=== PATIENT | female | born 1975 | race Hispanic/Latino ===

== ENCOUNTER 2024-09-04 14:13 | Inpatient (IN) | payer SELFPAY ==
[~2024-09-04] VITALS: Ht 149.9 cm; Wt 87.6 kg
--- NOTE | 2024-09-04 15:05 | EKG ---
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
[2024-09-04 15:18] LABS: AMPHET/METH SCREEN,URINE NEGATIVE (NEGATIVE); BARBITURATE SCREEN, URINE NEGATIVE (NEGATIVE); BENZODIAZEPINES SCREEN,URINE NEGATIVE (NEGATIVE); CANNABINOID SCREEN,URINE NEGATIVE (NEGATIVE); COCAINE SCREEN,URINE POSITIVE (NEGATIVE); OPIATE SCREEN,URINE NEGATIVE (NEGATIVE); PHENCYCLIDINE SCREEN,URINE NEGATIVE (NEGATIVE)
--- NOTE | 2024-09-04 15:18 | HMCIMG ---
INDICATION: CP TECHNIQUE: CHEST 1VW COMPARISON: None FINDINGS/IMPRESSION: No acute consolidation or pleural effusion. Cardiac silhouette is within normal limits. Mild degenerative changes of the spine. The visualized upper abdomen appears unremarkable.
[2024-09-04 15:19] LABS: BASOPHILS # (AUTO) 0.04 K/uL (0.00-0.20); BASOPHILS % (AUTO) 0.6 % (0.0-5.0); EOSINOPHILS # (AUTO) 0.04 K/uL (0.00-0.70); EOSINOPHILS % (AUTO) 0.6 % (0.0-8.0); HEMATOCRIT 38.6 % (36-48); IMMATURE GRANULOCYTE ABSOLUTE 0.04 K/uL (0-1); LYMPHOCYTES # (AUTO) 1.1 K/uL (1.0-4.8); LYMPHOCYTES % (AUTO) 16.3 % (21.0-51.0); MEAN CORPUSCULAR HEMOGLOBIN 30.5 pg (27.0-33.0); MEAN CORPUSCULAR HGB CONC 34.2 g/dL (32.0-36.0); MEAN CORPUSCULAR VOLUME 89.1 fL (79-99); MONOCYTES # (AUTO) 0.8 K/uL (0.1-1.0); MONOCYTES % (AUTO) 11.8 % (3.0-13.0); NEUTROPHILS # (AUTO) 4.6 K/uL (1.8-7.7); NEUTROPHILS % (AUTO) 70.1 % (40.0-77.0); PLATELET COUNT (AUTO) 243 K/uL (130-400); RED BLOOD CELL COUNT(AUTO) 4.33 MIL/uL (4.00-5.50); RED CELL DISTRIBUTION WIDTH 12.4 % (11.0-15.5); WHITE BLOOD COUNT (AUTO) 6.5 K/uL (4.8-10.8)
[2024-09-04] MEDS: PANTOPrazole 40 MG/VIAL IVP ONE (15:24)
[2024-09-04 15:25] LABS: APPEARANCE,URINE CLEAR (CLEAR); BILIRUBIN,URINE NEGATIVE (NEGATIVE); COLOR,URINE LIGHT-YELLOW (YELLOW); GLUCOSE, URINE (UA) >=1000 mg/dL (NEGATIVE); KETONES,URINE 10 mg/dL (NEGATIVE); LEUKOCYTE ESTERASE ,URINE NEGATIVE Leu/uL (NEGATIVE); NITRATE,URINE NEGATIVE (NEGATIVE); OCCULT BLOOD,URINE NEGATIVE (NEGATIVE); PH,URINE 6.5 (5.0-8.0); PROTEIN,URINE NEGATIVE (NEGATIVE); UROBILINOGEN,URINE 0.2 mg/dL (0.2-1.0)
[2024-09-04 15:26] LABS: ADD UA MICROSCOPIC YES
[2024-09-04 15:29] LABS: CREATININE 0.7 mg/dL (0.5-1.0); POTASSIUM 3.5 mmol/L (3.5-5.1)
[2024-09-04 15:31] LABS: INR <= 0.93 (0.85-1.15); PROTHROMBIN TIME 9.7 SEC (9.6-11.6)
[2024-09-04 15:33] LABS: ALBUMIN 2.7 g/dL (3.5-5.0); BILIRUBIN,TOTAL 0.5 mg/dL (0.2-1.0); MAGNESIUM 1.6 mg/dL (1.80-2.40); PARTIAL THROMBOPLASTIN TIME 24.6 SEC (26.3-35.5); TOTAL PROTEIN, SERUM 6.1 g/dL (6.0-8.3)
[2024-09-04 15:35] LABS: RBC,URINE 0-1 /HPF (0-1); SQUAMOUS EPITHELIAL CELL,UR FEW /HPF (0-2)
[2024-09-04 15:44] LABS: B-TYPE NATRIURETIC PEPTIDE 32 pg/mL (0-100)
[2024-09-04] MEDS: MAG/ALUM/SIMETH 30 ML UDCUP PO ONE (16:11)
[2024-09-04] MEDS: LIDOCAINE HCL 2% VISCOUS 15 ML UDCUP PO ONE (16:11)
--- NOTE | 2024-09-04 16:36 | ERN ---
General Chief Complaint: Chest Wall Pain Stated Complaint: CHEST PAIN Time Seen by MD: 14:23 Source: patient History of Present Illness Initial Comments Patient is a 49-year-old female coming in to be evaluated for chest pain. Per patient this pain has been ongoing for one week. Patient also states that pain is more pressure-like in his localized to the center of her chest. No other current complaint. Allergies: Coded Allergies: No Known Drug Allergies (Unverified Allergy, Unknown, 09/04/24) Past Medical History Past Medical History: Diabetes-Type II, Hypertension Past Surgical History: Other ROS Dictation CONSTITUTIONAL: No chills, no fever, no weakness, no diaphoresis, no malaise. HEAD/FACE: No signs of trauma. EENT: No eye pain, no blurred vision, no tearing, no double vision, no ear pain, no ear discharge, no nose pain, no nasal congestion, no throat pain, no throat swelling, no mouth pain. RESPIRATORY: No cough, no orthopnea, no SOB, no stridor, no wheezing. CARDIOVASCULAR: chest pain, no edema, no palpitations, no syncope. GASTROINTESTINAL/ABDOMINAL: No abdominal pain, no constipation, no diarrhea, no nausea, no vomiting. GENITOURINARY: No abnormal discharge, no dysuria, no frequent urination, no hematuria. No complaints of pain in the genitals. MUSCULOSKELETAL: No back pain, no gout, no joint pain, no joint swelling, no muscle pain, no muscle stiffness, no neck pain. INTEGUMENTARY: No change in color, no change in hair/nails, no dryness, no lesion, no lumps, no rash. NEUROLOGICAL/PSYCH: No anxiety, not depressed, no emotional problem, no headache, no numbness, no pre-existing deficit, no history of seizures, no tremors, no weakness. HEMATOLOGIC/LYMPHATIC: Not anemic, no history of blood clots, no apparent bleeding, no bruising, glands not swollen. All Systems Negative, Except as Noted. Physical Exam Physical Exam Dictation VITAL SIGNS: Reviewed. GENERAL APPEARANCE: Alert, oriented x3, no acute distress, obese. HEAD AND FACE: Non-traumatic. EYES: PERRL, pink conjunctivas, eyelid no trauma, anterior chamber clear. EARS: Pinnas intact and no signs of trauma or erythema. Ear canals clear and no discharge. TMs no erythema. NOSE: No discharge, no bleeding. OROPHARYNX: Mouth normal, teeth no caries, tongue pink. Pharynx clear, no erythema. Tonsils no exudates, no abscesses noted. Mucous membrane moist. NECK: Supple, non-tender, no thyromegaly, no masses, no JVD, no bruits. BREAST: Deferred. CHEST: No tenderness, no crepitus, no paradoxical movement, no retractions. LUNGS: Clear, well-ventilated, symmetric, no rales, no wheezing, no rhonchi, no stridor, good breath sounds bilaterally. HEART: Regular rate, regular rhythm, no murmur, no gallops. VASCULAR: No peripheral edema. ABDOMEN: Soft, positive bowel sounds, nondistended, no guarding, nontender, no rebound, no masses no hepatomegaly, no splenomegaly, no Lama's sign, no he rnias. RECTAL: Deferred. GENITAL: Deferred. NEUROLOGICAL: Normal speech, gross motor function intact, gross sensory functio n intact. MUSCULOSKELETAL: Neck nontender, full range of motion, back nontender, full range of motion. EXTREMITIES: Nontender, full range of motion. SKIN: Color pink, dry, no turgor, no rash, no lacerations, no abrasions, no contusions. LYMPHATICS: Deferred. Results Laboratory and Microbiology Lab and Micro Result Laboratory Tests Test 09/04/24 14:45 09/04/24 15:12 09/04/24 16:06 Urine Color LIGHT-YELLOW (YELLOW) Urine Appearance CLEAR (CLEAR) Urine pH 6.5 (5.0-8.0) Urine Specific [place] 1.030 (1.001-1.031) Urine Protein NEGATIVE mg/dL (NEGATIVE) Urine Glucose (UA) >=1000 mg/dL (NEGATIVE) H Urine Ketones 10 mg/dL (NEGATIVE) H Urine Occult Blood NEGATIVE (NEGATIVE) Urine Nitrate NEGATIVE (NEGATIVE) Urine Bilirubin NEGATIVE mg/dL (NEGATIVE) Urine Urobilinogen 0.2 mg/dL (0.2-1.0) Urine Leukocyte Esterase NEGATIVE Alex/uL Urine RBC 0-1 /HPF (0-1) Urine WBC 2-5 /HPF (0-1) H Urine Squamous Epithelial Cells FEW /HPF (0-2) Urine Bacteria None /HPF (None Seen) Urine Opiates Screen NEGATIVE (NEGATIVE) Urine Barbiturates Screen NEGATIVE (NEGATIVE) Urine Phencyclidine Screen NEGATIVE (NEGATIVE) Urine Amphetamines Screen NEGATIVE (NEGATIVE) Urine Benzodiazepines Screen NEGATIVE (NEGATIVE) Urine Cocaine Screen POSITIVE (NEGATIVE) H Urine Marijuana (THC) Screen NEGATIVE (NEGATIVE) White Blood Count 6.5 K/uL (4.8-10.8) Red Blood Count 4.33 MIL/uL (4.00-5.50) Hemoglobin 13.2 g/dL (12.0-16.0) Hematocrit 38.6 % (36-48) Mean Corpuscular Volume 89.1 fL (79-99) Mean Corpuscular Hemoglobin 30.5 pg (27.0-33.0) Mean Corpuscular Hemoglobin Concent 34.2 g/dL (32.0-36.0) Red Cell Distribution Width 12.4 % (11.0-15.5) Platelet Count 243 K/uL (130-400) Mean Platelet Volume 9.6 fL (7.5-10.5) Immature Granulocyte % (Auto) 0.6 % (0-1) Neutrophils (%) (Auto) 70.1 % (40.0-77.0) Lymphocytes (%) (Auto) 16.3 % (21.0-51.0) L Monocytes (%) (Auto) 11.8 % (3.0-13.0) Eosinophils (%) (Auto) 0.6 % (0.0-8.0) Basophils (%) (Auto) 0.6 % (0.0-5.0) Neutrophils # (Auto) 4.6 K/uL (1.8-7.7) Lymphocytes # (Auto) 1.1 K/uL (1.0-4.8) Monocytes # (Auto) 0.8 K/uL (0.1-1.0) Eosinophils # (Auto) 0.04 K/uL (0.00-0.70) Basophils # (Auto) 0.04 K/uL (0.00-0.20) Absolute Immature Granulocyte (auto 0.04 K/uL (0-1) Nucleated Red Blood Cells 0.0 % (0.0-0.19) Prothrombin Time 9.7 SEC (9.6-11.6) Prothromb Time International Ratio <= 0.93 (0.85-1.15) Activated Partial Thromboplast Time 24.6 SEC (26.3-35.5) L Sodium Level 137 mmol/L (136-145) Potassium Level 3.5 mmol/L (3.5-5.1) Chloride Level 102 mmol/L (101-111) Carbon Dioxide Level 29 mmol/L (21-32) Blood Urea Nitrogen 6 mg/dL (7-18) L Creatinine 0.7 mg/dL (0.5-1.0) Glomerular Filtration Rate Calc 107 mL/min (>90) Random Glucose 363 mg/dL (70-105) H Total Calcium 8.5 mg/dL (8.5-10.1) Magnesium Level 1.60 mg/dL (1.80-2.40) L Total Bilirubin 0.5 mg/dL (0.2-1.0) Aspartate Amino Transf (AST/SGOT) 14 U/L (10-37) Alanine Aminotransferase (ALT/SGPT) 21 U/L (12-78) Alkaline Phosphatase 106 U/L (50-136) Total Creatine Kinase 30 U/L (21-232) Troponin I High Sensitivity < 4 ng/L (4-50) L < 4 ng/L (4-50) L B-Type Natriuretic Peptide 32 pg/mL (0-100) Total Protein 6.1 g/dL (6.0-8.3) Albumin 2.7 g/dL (3.5-5.0) L Lipase 50 U/L (16-77) Labs Reviewed?: Yes EKG/XRAY/US/CT/MRI EKG Comment 09/04/2024 time 3:04 p.m. Ventricular rate [address] wave elevation or depression AL 140 X-RAY Comment [place] [id number] [place] [address] IMAGING REPORT Signed PATIENT: SERA LOPEZ MR#: [id number] : 1975 SEX: F AGE: 49 LOCATION: [facility] ORDER 37 STATUS: REG ER REPORT#: [id number] SERVICE 36 REASON: CP ORDERING PHYSICIAN: VICTORIANO HANKS MD PROCEDURE: CXR1VW - CHEST 1VW INDICATION: CP TECHNIQUE: CHEST 1VW COMPARISON: None FINDINGS/IMPRESSION: No acute consolidation or pleural effusion. Cardiac silhouette is within normal limits. Mild degenerative changes of the spine. The visualized upper abdomen appears unremarkable. DICTATED BY: JAVY ALEXIS MD DATE: 09/04/241512 ELECTRONICALLY SIGNED BY: JAVY ALEXIS MD DATE: 09/04/241517 MDM MDM: Differential diagnosis: Chest pain, cocaine abuse, Rationale: Tests considered and ordered secondary to shared decision making include: labs, ECG and radiology Previous outside records reviewed: Old ER visits. Risk of complication and/or morbidity or mortality of patient management: None Medications-Per medication reconciliation Need for hospitalization: Patient does meet criteria for hospitalization. Need for emergency major/minor surgery: No There are no social concerns with this patient. Prescription drug management Prescriptions will include symptomatic care Patient's prior external medical records from other ER visits were reviewed by me as indicated. Prior testing and results from previous visits were reviewed. Prior tests were taken into account with medical decision making and resource utilization, independent historian/historians were used to obtain complete medical history. I independently interpreted the test that were performed, results were reviewed by me and considered findings on radiology if ordered. Medical management and examination interpretation discussions were had by me with other qualified healthcare professionals as indicated for the patient's care. Patient is a 49-year-old female coming in to be evaluated for chest pain. Patient states that the chest pain has been ongoing for two weeks. She also states that the chest pain became increasingly worse in the last couple of days. Laboratory workup positive for cocaine cardiac enzymes negative x2. Patient will be admitted under the care of hospitalist group for ongoing management of cocaine abuse and chest pain. ED Course Orders Procedure Category Date Status Time Cbc With Differential LAB 09/04/24 Complete 14:37 Prothrombin Time With LAB 09/04/24 Complete INR 14:37 B-Type Natriuretic LAB 09/04/24 Complete Peptide 14:37 Chest 1vw RAD 09/04/24 Resulted 14:37 12 Lead Ekg Tracing- EKG 09/04/24 Complete Technical 14:37 Magnesium LAB 09/04/24 Complete 14:37 Creatine Kinase, Total LAB 09/04/24 Complete 14:37 Troponin I High LAB 09/04/24 Complete Sensitivity 14:37 Urinalysis Profile LAB 09/04/24 Complete 14:37 Partial LAB 09/04/24 Complete Thromboplastin Time 14:37 Comprehensive LAB 09/04/24 Complete Metabolic Panel 14:37 Lipase LAB 09/04/24 Complete 14:37 Pantoprazole 40mg Inj PHA 09/04/24 Complete (Protonix 40mg Inj 15:00 Drug Screen Urine LAB 09/04/24 Complete 14:38 Lidocaine Hcl 2% PHA 09/04/24 Complete Viscous (Lidocaine Hcl 16:00 Mag/Alum/Simeth 30ml PHA 09/04/24 Complete (Maalox Plus 30ml) 16:00 Troponin I High LAB 09/04/24 Complete Sensitivity 15:52 0.9%Nacl 1000ml (Ns PHA 09/04/24 Complete 1000ml) 17:00 Nitroglycerin 0.4mg PHA 09/04/24 In Process Sl Tab (Nitrostat) 17:30 Magnesium Oxide PHA 09/04/24 Complete (Mag-Ox) 17:30 Nitroglycerin 0.4mg PHA 09/04/24 Complete Sl Tab (Nitrostat) 17:05 Diazepam 5 Mg/Ml 2 Ml PHA 09/04/24 Complete Syg (Valium 5 Mg/M 18:00 Current Medications Medications (Trade) Dose Ordered Sig/Sami Route PRN Reason Start Time Stop Time Status Last Admin Dose Admin Al Hydroxide/Mg Hydroxide (MAALox PLUS 30ML) 30 ml ONCE ONCE PO 09/04/24 16:00 09/04/24 16:01 DC 09/04/24 16:11 Diazepam (VALium 5 MG/ML 2 ML SYG) 2.5 mg ONCE ONCE IVP 09/04/24 18:00 09/04/24 18:01 DC 09/04/24 18:10 Lidocaine HCl (Lidocaine HCl 2% Viscous) 10 ml ONCE ONCE PO 09/04/24 16:00 09/04/24 16:01 DC 09/04/24 16:11 Magnesium Oxide (Mag-Ox) 400 mg ONCE ONCE PO 09/04/24 17:30 09/04/24 17:31 DC 09/04/24 18:10 Nitroglycerin (Nitrostat) 0.4 mg AD PRN SL CHEST PAIN 09/04/24 17:30 10/04/24 17:29 09/04/24 17:28 Nitroglycerin (Nitrostat) 0.4 mg STK-MED ONCE SL 09/04/24 17:05 09/04/24 17:11 DC Pantoprazole Sodium (PROTonix 40MG INJ) 40 mg ONCE ONCE IVP 09/04/24 15:00 09/04/24 15:01 DC 09/04/24 15:24 Sodium Chloride 1,000 ml @ 0 mls/hr ONCE ONCE IV 09/04/24 17:00 09/04/24 17:01 DC 09/04/24 16:57 Vital Signs Date Time Temp Pulse Resp B/P (MAP) Pulse Ox O2 Delivery O2 Flow Rate FiO2 09/04/24 17:20 100.0 113 24 122/77 96 Room Air* 0 09/04/24 17:05 99.9 110 24 133/82 97 Room Air* 0 09/04/24 16:00 112 22 130/86 97 Room Air* 0 09/04/24 15:14 96 20 125/82 97 Room Air* 0 09/04/24 14:14 98.4 99 20 161/89 95 Room Air 0 DX & DISP Disposition: Inpatient Decision to Admit Time: 18:25 Departure Impression: Primary Impression: Cocaine abuse Additional Impression: Chest pain Condition: Stable Referrals: SELF,REFERRAL (PCP) VICTORIANO HANKS MD Sep 04, 2024 16:36
[2024-09-04] MEDS: 0.9%NACL 1000ML 1,000 ML IV ONE (16:57)
[2024-09-04] MEDS: NITROGLYCERIN 0.4 MG SL TAB SL PRN (17:08)
[2024-09-04] MEDS: NITROGLYCERIN 0.4 MG SL TAB SL ONE (17:13)
[2024-09-04] MEDS: diazePAM 5 MG/ML 2 ML SYG IVP ONE (18:10)
[2024-09-04] MEDS: MAGNESIUM OXIDE 400 MG TABLET PO ONE (18:10)
[2024-09-04] MEDS ORDERED: hydrALAZine 20MG/ML VIAL IV PRN (18:30)
--- NOTE | 2024-09-04 18:32 | HP ---
History of Present Illness Reason for Visit: chest pain History of Present Illness Ms. Johnson is a 49-year-old female that was seen and examined today on 09/04/2024. Patient is a good historian and personal health. Patient's Enrico Rollins is at bedside. Patient states that she came to the emergency department with a chief complaint of chest pain. Onset was three weeks ago. Location is to left pectoral area. Duration is on and off. Episodes last about 5 minutes. There was no aggravating factors. Symptoms are alleviated by standing up and resting in that position. Patient reports associated shortness of breath whenever she has this chest pain. Today in the emergency department glucose 363 mg/dL, magnesium 1.6, urinalysis unremarkable, urine drug screen positive for cocaine, troponins are unremarkable. Emergency room physician recommended that patient be admitted with a diagnosis of chest pain. Past Medical History ADDITIONAL PAST MEDICAL HISTORY: [Diabetes mellitius type2, hypertension, hyperlipidemia] SOCIAL HISTORY: [Negative for smoking, patient drinks alcohol about once a month usually Michelada cocktails. Patient uses cocaine about 2 times a year. Patient denies any other drug use. Patient lives with the . Patient is typically independent of all her ADLs. Patient has good access to health care through her insurance. Patient denies difficulty paying her bills. Patient is employed as a provider.] SURGICAL HISTORY: [BTL, section x3] Review of Systems General: No Fever, No Chills, No Night Sweats, No Fatigue, No Malaise, No Appetite, No Other HEENT: No Head Aches, No Visual Changes, No Eye Pain, No Ear Pain, No Dysphasia, No Sinus Congestion, No Post Nasal Drip, No Sore Throat, No Other Pulmonary: Dyspnea; No Cough, No Pleuritic Chest Pain, No Other Cardiovascular: Chest Pain; No: Palpitations, Orthopnea, Paroxysmal Noc. Dyspnea, Edema, Lt Headedness, Other Gastrointestinal: No: Nausea, Vomiting, Abdominal Pain, Diarrhea, Constipation, Melena, Hematochezia, Other Genitourinary: No Dysuria, No Frequency, No Incontinence, No Hematuria, No Retention, No Other Musculoskeletal: No: other, neck pain, shoulder pain, arm pain, back pain, hand pain, leg pain, foot pain Skin: No Urticaria, No Rash, No Other Neurological: No: Weakness, Numbness, Incoordination, Change in speech, Confusion, Seizures, Other Allergies: Coded Allergies: No Known Drug Allergies (Unverified Allergy, Unknown, 09/04/24) Exam Vital Signs Vital Signs Date Time Temp Pulse Resp B/P (MAP) Pulse Ox O2 Delivery O2 Flow Rate FiO2 09/04/24 17:20 100.0 113 24 122/77 96 Room Air* 0 21 General Appearance: Alert, Oriented X3, Cooperative, No acute distress HEENT: Atraumatic, PERRLA, EOMI Respiratory: Clear to auscultation, Normal air movement, NL respiratory effort Cardiovascular: Regular rate, Regular rhythm, Normal S1, Normal S2 Abdominal: Normal bowel sounds, Soft, No tenderness Extremities: No edema Skin: No significant lesion Neuro: Normal gait, Normal speech, Strength at 5/5 X4 ext, Sensation intact, Cranial nerves 3-12 NL Psych/Mental Status: Mental status NL, Mood NL, Thoughts/Content NL Assessment/Plan ASSESSMENT: [ Chest pain, POA Uncontrolled Diabetes mellitius type2, POA Hypomagnesemia, POA Substance abuse, POA, cocaine] PLAN: [ Admit patient to medical floor as inpatient status. Place patient on telemetry monitoring. Aspirin 162 mg by mouth times 1. Continue aspirin 81 mg by mouth once daily. Supplemental oxygen to maintain O2 saturation greater 92%. Trend troponin every 6 hours x3 sets Consider consulting Cardiology if any uptrending troponins or persistent chest pain Nitro paste 0.5 in to anterior chest wall every 8 hours Check hemoglobin A1c in a.m. Glucometer checks a.c. and HS 1800 ADA diet Humulin R sliding scale 1. Replace magnesium per hospital protocol Consult patient on illicit drug use cessation GI prophylaxis, famotidine 20 mg by mouth once daily. DVT prophylaxis, Lovenox 40 mg subcutaneously once daily. ADVANCED CARE PLANNING 1. Which of the following were discussed? Hospice Care - Yes Therapeutic options - Yes Advance Directives - Yes-patient states she does not have any advance directives in place at this time, however her has been can make decisions for her if she becomes unable. Other discussions - patient wishes to remain a full code at this time 2. Discussed with who? Patient 3. Voluntary nature of this service was explained to the patient? Yes 4. Amount of time spent - ____ 16 minutes ___ 5. Reviewed by Physician? (if this service was performed by NPP) Yes This document was generated in part using voice recognition software, occasional wrong word or sound alike substitutions may have occurred due to the inherent limitations of voice recognition software. Read the chart carefully and recognize using context, where the substitutions have occurred. Although every effort was made to edit the content, rn post partum and typing errors may occur ATTESTATION BY PHYSICIAN I have seen and examined the patient. I reviewed the documentation, medical decision making, and treatment plan as noted by the mid-level provider above. I agree with the findings and plan of care. CHRISTY PALUMBO [facility] Sep 04, 2024 18:32
[2024-09-04] MEDS: NITROGLYCERIN 1GM OINT 1 INCH/1GM TD SCH (18:44)
[2024-09-04] MEDS: ASPIRIN 81MG CHEW TAB PO ONE (18:44)
[2024-09-04] MEDS: acetaMINOPHEN 325 MG TAB PO PRN (19:42)
[2024-09-04] MEDS: ondanSETRON 4MG INJ IV PRN (19:42)
[2024-09-04] MEDS: morPHINE 4 MG SYG IV PRN (19:43)
[2024-09-04] MEDS: INSULIN humuLIN R 100 UNIT/ML 3ML SQ SCH (21:00)
[2024-09-04] MEDS: MAGNESIUM 2GM PREMIX 50ML 50 ML IV PRN (21:22)
--- NOTE | 2024-09-04 22:00 | NUR ---
CARE ASSUMED AT THIS TIME
[2024-09-05 03:52] LABS: CREATININE 0.7 mg/dL (0.5-1.0); MAGNESIUM 1.9 mg/dL (1.80-2.40); PHOSPHORUS 3.5 mg/dL (2.5-4.9); POTASSIUM 3.7 mmol/L (3.5-5.1)
[2024-09-05 03:56] LABS: BASOPHILS # (AUTO) 0.04 K/uL (0.00-0.20); BASOPHILS % (AUTO) 0.5 % (0.0-5.0); EOSINOPHILS # (AUTO) 0.06 K/uL (0.00-0.70); EOSINOPHILS % (AUTO) 0.7 % (0.0-8.0); HEMATOCRIT 40.6 % (36-48); IMMATURE GRANULOCYTE ABSOLUTE 0.05 K/uL (0-1); LYMPHOCYTES # (AUTO) 1.3 K/uL (1.0-4.8); LYMPHOCYTES % (AUTO) 16.4 % (21.0-51.0); MEAN CORPUSCULAR HEMOGLOBIN 30.3 pg (27.0-33.0); MEAN CORPUSCULAR HGB CONC 33.3 g/dL (32.0-36.0); MEAN CORPUSCULAR VOLUME 91.2 fL (79-99); MONOCYTES # (AUTO) 1.2 K/uL (0.1-1.0); MONOCYTES % (AUTO) 14.1 % (3.0-13.0); NEUTROPHILS # (AUTO) 5.5 K/uL (1.8-7.7); NEUTROPHILS % (AUTO) 67.7 % (40.0-77.0); PLATELET COUNT (AUTO) 268 K/uL (130-400); RED BLOOD CELL COUNT(AUTO) 4.45 MIL/uL (4.00-5.50); RED CELL DISTRIBUTION WIDTH 12.6 % (11.0-15.5); WHITE BLOOD COUNT (AUTO) 8.2 K/uL (4.8-10.8)
[2024-09-05 04:00] LABS: HEMOGLOBIN A1C 11.8 % (4.0-6.0)
[2024-09-05] MEDS: ASPIRIN 81 MG EC TAB PO SCH (08:49)
[2024-09-05] MEDS: ENOXAPARIN SODIUM 40 MG/0.4 ML SYRINGE SQ SCH (08:49)
[2024-09-05] MEDS: FAMOTIDINE 20MG TAB PO SCH (08:50)
--- NOTE | 2024-09-05 10:13 | PN ---
[facility] PROGRESS NOTE Date of Service: Sep 05, 2024 Time of Service: 09:45 SUBJECTIVE: 09/05 - Patient seen at bedside in ED 9. She is afebrile, tachycardic, normotensive, saturating well on room air. Patient complains of chest wall pain with respiration and movement. Patient being treated with morphine for pain management. Patient states she has not been to a PCP in "awhile." Discussed the significance of her elevated A1c of 11.8 and not being treated. Patient is currently on insulin sliding scale. Remarkable labs: Troponins are negative times three. white count up from 6.5 to 8.2, H&H stable, platelets 268K, sodium 133, potassium 3.7, chloride 100, bicarb 28, BUN 5, creatinine 0.7, glucose 268, lipase negative. UA was positive for ketone and glucose greater than 1000, toxicology screening was positive for cocaine. Chest xray shows no acute consolidation of pleural effusion, cardiac silhouette within normal limits, mild degenerative changes to the spine. EKG shows sinus rhythm. Patient is ambulating but states she has pain with leaning forward that also radiates to the back. Will order a CT scan to rule out aortic dissection. REVIEW OF SYSTEMS CONSTITUTIONAL: Denies fevers, chills, or night sweats. No unintentional weight loss reported. NEUROLOGICAL: Denies headache, amaurosis fugax, motor weakness, sensory deficit, vertigo/spinning sensation, gait abnormalities, or tremors. ENT: No hearing loss, otalgia, otorrhea, rhinitis, rhinorrhea, hoarseness, or sore throat. CARDIOVASCULAR: Denies any exertional angina, dyspnea on exertion, orthopnea, paroxysmal nocturnal dyspnea, palpitations, life-threatening arrhythmias, claudication. PULMONARY: Denies any shortness of breath, cough, phlegm/sputum, hemoptysis, pleuritic chest pain. SLEEP: Denies morning headaches, daytime somnolence or napping. Denies difficulty falling asleep, staying asleep, waking from sleep. Denies knowledge of snoring. GASTROINTESTINAL: Denies any type of dysphagia to either liquids or solids. Denies nausea, vomiting, pyrosis, early satiety, abdominal pain, diarrhea, constipation, or changes in stool consistency or caliber. Denies coffee-ground emesis, hematemesis, hematochezia, or melanotic stools. GENITOURINARY: Denies frequency, urgency, nocturia, hematuria or incontinence (Storage/Irritative symptoms.) Low urinary stream, straining to void, urinary intermittency or hesitancy, splitting of the voiding stream, terminal dribbling. ENDOCRINOLOGIC: Denies polyuria, polydipsia, polyphagia or heat/cold intolerances. HEMATOLOGIC: Denies thrombophilia/previous clots, or coagulopathy/bleeding disorders. ONCOLOGIC: Denies personal history of malignancy. DERMATOLOGIC: Denies rashes or pruritus. PSYCHIATRIC: Denies any suicidal or homicidal ideation. Denies hallucinations. PHYSICAL EXAM GENERAL APPEARANCE: The patient is awake, alert, and oriented, in no acute cardiopulmonary distress. NEUROLOGICAL: Cranial nerves II-XII grossly intact. Motor is 5/5 in bilateral upper and lower extremities proximal to distal. No sensory deficits. HEENT: Face is symmetric. Pupils are equal and reactive. Extraocular movements are intact. NECK: Supple. No JVD. No thyromegaly. No submental, submandibular, pre- /postauricular, occipital or supraclavicular lymphadenopathy. CHEST: Normal chest expansion. No Telemetry. LUNGS: Absence of any rales, rhonchi or any wheezing. CARDIOVASCULAR: Regular. S1 and S2 normal. No appreciable rubs, murmurs or gallops. ABDOMEN: Soft, nontender, and nondistended. There is no rebound, voluntary guarding, or rigidity. : Deferred. No Nunez. EXTREMITIES: Non-edematous and not cyanotic. No clubbing. Good capillary refill. SKIN: No skin breakdown. Vital Signs (last 8hr) Date Time Temp Pulse Resp B/P (MAP) Pulse Ox O2 Delivery O2 Flow Rate FiO2 09/05/24 07:30 98.8 111 20 99/65 95 Room Air* 0 21 09/05/24 07:26 98.8 111 20 99/65 94 Room Air* 0 21 09/05/24 04:13 99.0 101 20 126/74 94 Room Air* 0 21 LABS: Laboratory: Test 09/05/24 08:11 09/05/24 03:26 09/04/24 15:12 09/04/24 14:45 Range/Units Whole Blood Glucose 268 H 70-110 MG/DL White Blood Count 8.2 # 4.8-10.8 K/uL Red Blood Count 4.45 4.00-5.50 MIL/uL Hemoglobin 13.5 12.0-16.0 g/dL Hematocrit 40.6 36-48 % Mean Corpuscular Volume 91.2 79-99 fL Mean Corpuscular Hemoglobin 30.3 27.0-33.0 pg Mean Corpuscular Hemoglobin Concent 33.3 32.0-36.0 g/dL Red Cell Distribution Width 12.6 11.0-15.5 % Platelet Count 268 130-400 K/uL Mean Platelet Volume 9.6 7.5-10.5 fL Immature Granulocyte % (Auto) 0.6 0-1 % Neutrophils (%) (Auto) 67.7 40.0-77.0 % Lymphocytes (%) (Auto) 16.4 L 21.0-51.0 % Monocytes (%) (Auto) 14.1 H 3.0-13.0 % Eosinophils (%) (Auto) 0.7 0.0-8.0 % Basophils (%) (Auto) 0.5 0.0-5.0 % Neutrophils # (Auto) 5.5 1.8-7.7 K/uL Lymphocytes # (Auto) 1.3 1.0-4.8 K/uL Monocytes # (Auto) 1.2 H 0.1-1.0 K/uL Eosinophils # (Auto) 0.06 0.00-0.70 K/uL Basophils # (Auto) 0.04 0.00-0.20 K/uL Absolute Immature Granulocyte (auto 0.05 0-1 K/uL Nucleated Red Blood Cells 0.0 0.0-0.19 % Sodium Level 133 L 136-145 mmol/L Potassium Level 3.7 3.5-5.1 mmol/L Chloride Level 100 L 101-111 mmol/L Carbon Dioxide Level 28 21-32 mmol/L Blood Urea Nitrogen 5 L 7-18 mg/dL Creatinine 0.7 0.5-1.0 mg/dL Glomerular Filtration Rate Calc 107 >90 mL/min Random Glucose 328 H 70-105 mg/dL Hemoglobin A1c 11.8 H 4.0-6.0 % Estimated Average Glucose (eAG) 292 H 70-126 mg/dL Total Calcium 8.4 L 8.5-10.1 mg/dL Phosphorus Level 3.5 2.5-4.9 mg/dL Magnesium Level 1.90 1.80-2.40 mg/dL Troponin I High Sensitivity < 4 L 4-50 ng/L Prothrombin Time 9.7 9.6-11.6 SEC Prothromb Time International Ratio <= 0.93 0.85-1.15 Activated Partial Thromboplast Time 24.6 L 26.3-35.5 SEC Total Bilirubin 0.5 0.2-1.0 mg/dL Aspartate Amino Transf (AST/SGOT) 14 10-37 U/L Alanine Aminotransferase (ALT/SGPT) 21 12-78 U/L Alkaline Phosphatase 106 50-136 U/L Total Creatine Kinase 30 21-232 U/L B-Type Natriuretic Peptide 32 0-100 pg/mL Total Protein 6.1 6.0-8.3 g/dL Albumin 2.7 L 3.5-5.0 g/dL Lipase 50 16-77 U/L Urine Color LIGHT-YELLOW YELLOW Urine Appearance CLEAR CLEAR Urine pH 6.5 5.0-8.0 Urine Specific [place] 1.030 1.001-1.031 Urine Protein NEGATIVE NEGATIVE mg/dL Urine Glucose (UA) >=1000 H NEGATIVE mg/dL Urine Ketones 10 H NEGATIVE mg/dL Urine Occult Blood NEGATIVE NEGATIVE Urine Nitrate NEGATIVE NEGATIVE Urine Bilirubin NEGATIVE NEGATIVE mg/dL Urine Urobilinogen 0.2 0.2-1.0 mg/dL Urine Leukocyte Esterase NEGATIVE NEGATIVE Alex/uL Urine RBC 0-1 0-1 /HPF Urine WBC 2-5 H 0-1 /HPF Urine Squamous Epithelial Cells FEW 0-2 /HPF Urine Bacteria None None Seen /HPF Urine Opiates Screen NEGATIVE NEGATIVE Urine Barbiturates Screen NEGATIVE NEGATIVE Urine Phencyclidine Screen NEGATIVE NEGATIVE Urine Amphetamines Screen NEGATIVE NEGATIVE Urine Benzodiazepines Screen NEGATIVE NEGATIVE Urine Cocaine Screen POSITIVE H NEGATIVE Urine Marijuana (THC) Screen NEGATIVE NEGATIVE Current Medications Medications (Trade) Dose Ordered Sig/Sami Route PRN Reason Start Time Stop Time Status Last Admin Dose Admin Acetaminophen (TYLenol 325MG TAB) 650 mg Q6H PRN PO TEMPERATURE GREATER THAN 101.5 09/04/24 18:30 10/04/24 18:29 09/04/24 19:42 650 MG Aspirin (Aspirin 81mg Ec Tab) 81 mg DAILY PO 09/05/24 09:00 10/05/24 08:59 09/05/24 08:49 81 MG Enoxaparin Sodium (Lovenox) 40 mg DAILY SQ 09/05/24 09:00 10/05/24 08:59 09/05/24 08:49 40 MG Famotidine (Pepcid 20mg Tab) 20 mg DAILY PO 09/05/24 09:00 10/05/24 08:59 09/05/24 08:50 20 MG Hydralazine HCl (APRESOLine 20MG INJ) 10 mg Q6H PRN IV For:SBP above 160;DBP above 90 09/04/24 18:30 10/04/24 18:29 Insulin Human Regular (humuLIN R 100 UNIT/ML 3ML) INSULIN SLIDING SCAL... ACHS SQ 09/04/24 21:00 10/04/24 20:59 09/05/24 08:16 5 UNIT Magnesium Sulfate 50 ml @ 0 mls/hr PROTOCOL PRN IV h 09/04/24 18:30 10/04/24 18:29 09/04/24 21:22 25 MLS/HR Morphine Sulfate (morPHINE 4MG SYG) 4 mg Q4H PRN IV SEVERE PAIN (7-10) 09/04/24 18:30 09/11/24 18:29 09/05/24 05:49 4 MG Nitroglycerin (Nitroglycerin 1gm Oint) 0.5 inch Q8H TD 09/04/24 18:30 10/04/24 18:29 09/05/24 02:34 0.5 INCH Nitroglycerin (Nitrostat) 0.4 mg AD PRN SL CHEST PAIN 09/04/24 17:30 10/04/24 17:29 09/04/24 17:28 0.4 MG Ondansetron HCl (zoFRAN 4MG INJ) 4 mg Q6H PRN IV NAUSEA/VOMITING 09/04/24 18:30 10/04/24 18:29 09/04/24 19:42 4 MG DIAGNOSTICS / RADIOLOGY: [place] [address] [address] IMAGING REPORT Signed PATIENT: SERA LOPEZ MR#: [id number] : 1975 SEX: F AGE: 49 LOCATION: [facility] ORDER [id number] STATUS: REG ER REPORT#: [id number] SERVICE 36 REASON: CP ORDERING PHYSICIAN: VICTORIANO HANKS MD PROCEDURE: CXR1VW - CHEST 1VW INDICATION: CP TECHNIQUE: CHEST 1VW COMPARISON: None FINDINGS/IMPRESSION: No acute consolidation or pleural effusion. Cardiac silhouette is within normal limits. Mild degenerative changes of the spine. The visualized upper abdomen appears unremarkable. DICTATED BY: JAVY ALEXIS MD DATE: 09/04/241512 ELECTRONICALLY SIGNED BY: JAVY ALEXIS MD DATE: 09/04/241517 ASSESSMENT: Chest pain rule out ACS, POA substance abuse - cocaine, POA uncontrolled diabetes mellitus type II, A1c 11.8, POA Hypomagnesemia, POA PLAN: Patient admitted to [facility] will order CT scan to rule out: ACS vs. aortic dissection Chest pain, substance abuse - cocaine Follow hemodynamics Vital signs per facility protocol ASA 81 mg PO QD Supplemental oxygen to maintain O2 saturation greater than 92% Trend troponins x 3 q6h Nitroglycerin paste 0.5 to anterior chest wall every 8 hours Consider Cardiology consult if troponin up trending and continued chest pain Diabetes mellitus type II Maintain blood glucose between 100-180 at all times Insulin sliding scale for blood glucose management Hypoglycemia and hyperglycemia protocol in place 1800 ADA diet Prophylaxis: Continue GI prophylaxis - famotidine 20 mg PO QD DVT Prophylaxis - Lovenox 40 mg subcutaneously once daily Electrolyte replacements per protocol Consult patient on illicit druge use ATTESTATION BY PHYSICIAN I have seen and examined the patient. I reviewed the documentation, medical decision making, and treatment plan as noted by the resident provider above. I agree with the findings and plan of care. Myrtle Torre MD, PRIYA N Sep 05, 2024 10:13
[2024-09-05] MEDS ORDERED: IOHEXOL-350 75 ML VIAL IV ONE (13:37)
--- NOTE | 2024-09-05 14:32 | NUR ---
DCP: HOME Per pt, she lives at home with her Enrico [phone]. Pt does not work, drives, is independent of all her ADLS, and home management. Pt has no DME or in home care services. PCP is Brooke Salcedo and uses [facility] for rx. Pt denies dc needs and will return home at dc Addendum: 09/05/24 at 1436 by JOSE A DELGADILLO SS Amended: Links added.
--- NOTE | 2024-09-05 18:16 | HMCIMG ---
CT ANGIO ABDOMEN PELVIS HISTORY: Aortic dissection COMPARISON: None TECHNIQUE: CT angiography of the abdomen and pelvis was obtained using angiographic technique with maximum intensity projection reconstruction images. Patient was given 75 cc of Omnipaque through intravenous route. Oral contrast was not given. FINDINGS: Tiny right pleural effusion is seen. Bilateral lower lung pulmonary infiltrates are seen with linear atelectasis. Degenerative changes of the thoracolumbar spine are present. The heart is not enlarged. Liver is enlarged with fatty changes measuring 21 cm. The liver, spleen, adrenal glands and pancreas are unremarkable. There is no evidence of hydronephrosis bilaterally. No evidence of renal stone is seen. Fecal material is seen in the colon. There are normal size retroperitoneal and mesenteric lymph nodes. No ascites is seen. Atherosclerotic changes are present. Small bilateral ovarian cysts versus follicles are seen. Minimal subcutaneous fat stranding is seen in the left lower abdominal wall. There is diffuse atherosclerotic disease. No evidence of abdominal aortic aneurysm or aortic dissection is seen. The celiac, superior mesenteric and bilateral renal arteries are grossly patent. The visualized portion of the iliac and femoral arterial systems are also grossly patent. Pelvic sidewalls are symmetric bilaterally. Bladder is well distended without wall thickening. IMPRESSION: 1. No evidence of abdominal aortic aneurysm or aortic dissection is seen. Unremarkable CT angiogram study. Tiny right pleural effusion is seen. Bilateral lower lung pulmonary infiltrates are seen with linear atelectasis. CT was performed with one or more following dose reduction techniques: automated exposure control, adjustment of the mA and kv according to patient's size, or use of a iterative reconstruction technique.
--- NOTE | 2024-09-05 20:50 | NUR ---
NURSE VANDA NOT READY TO TAKE REPORT AT THE MOMENT, WILL WAIT FOR HER CALL BACK
--- NOTE | 2024-09-05 21:04 | NUR ---
PATIENT NOT ON ANY HOME MEDS
[2024-09-05 21:18] VITALS: BP 139/83; PULSE 110; RESP 19; TEMP 99.3; O2SAT 97
[2024-09-05 23:38] VITALS: BP 108/64; PULSE 96; RESP 18; TEMP 98.8
[2024-09-06] VITALS (10 sets, daily range): BP systolic 115–143; BP diastolic 75–92; PULSE 64–98; RESP 15–19; TEMP 98.3–99; O2SAT 94
[2024-09-06 05:45] LABS: BASOPHILS # (AUTO) 0.03 K/uL (0.00-0.20); BASOPHILS % (AUTO) 0.4 % (0.0-5.0); EOSINOPHILS # (AUTO) 0.12 K/uL (0.00-0.70); EOSINOPHILS % (AUTO) 1.6 % (0.0-8.0); HEMATOCRIT 34.9 % (36-48); IMMATURE GRANULOCYTE ABSOLUTE 0.06 K/uL (0-1); LYMPHOCYTES # (AUTO) 1.2 K/uL (1.0-4.8); MEAN CORPUSCULAR HEMOGLOBIN 30.2 pg (27.0-33.0); MEAN CORPUSCULAR VOLUME 91.6 fL (79-99); MONOCYTES % (AUTO) 12.7 % (3.0-13.0); NEUTROPHILS # (AUTO) 5.4 K/uL (1.8-7.7); NEUTROPHILS % (AUTO) 69.5 % (40.0-77.0); PLATELET COUNT (AUTO) 236 K/uL (130-400); RED BLOOD CELL COUNT(AUTO) 3.81 MIL/uL (4.00-5.50); RED CELL DISTRIBUTION WIDTH 12.3 % (11.0-15.5); WHITE BLOOD COUNT (AUTO) 7.7 K/uL (4.8-10.8)
[2024-09-06 06:16] LABS: ALBUMIN 2.3 g/dL (3.5-5.0); BILIRUBIN,TOTAL 0.6 mg/dL (0.2-1.0); CREATININE 0.6 mg/dL (0.5-1.0); POTASSIUM 3.7 mmol/L (3.5-5.1); TOTAL PROTEIN, SERUM 6.2 g/dL (6.0-8.3)
--- NOTE | 2024-09-06 08:54 | PN ---
[facility] PROGRESS NOTE Date of Service: Sep 06, 2024 Time of Service: 08:53 SUBJECTIVE: 09/05 - Patient seen at bedside in ED 9. She is afebrile, tachycardic, normotensive, saturating well on room air. Patient complains of chest wall pain with respiration and movement. Patient being treated with morphine for pain management. Patient states she has not been to a PCP in "awhile." Discussed the significance of her elevated A1c of 11.8 and not being treated. Patient is currently on insulin sliding scale. Remarkable labs: Troponins are negative times three. white count up from 6.5 to 8.2, H&H stable, platelets 268K, sodium 133, potassium 3.7, chloride 100, bicarb 28, BUN 5, creatinine 0.7, glucose 268, lipase negative. UA was positive for ketone and glucose greater than 1000, toxicology screening was positive for cocaine. Chest xray shows no acute consolidation of pleural effusion, cardiac silhouette within normal limits, mild degenerative changes to the spine. EKG shows sinus rhythm. Patient is ambulating but states she has pain with leaning forward that also radiates to the back. Will order a CT scan to rule out aortic dissection. 09/06 - patient seen at bedside, afebrile, normotensive, HR 95, saturating on 94% oxygen room air. Patient complains of pain when breathing. CT scan results state no evidence of abdominal aortic dissection or aneurysm. Bilateral lower lung pulmonary infiltrates are seen with linear atelectasis. CT angiogram study unremarkable. Remarkable labs: white count WNL, H&H stable, electrolytes WNL, glucose 230. Patient will be switched from IV morphine 4mg to oral Toradol for chest wall pain most likely due to costochondritis. REVIEW OF SYSTEMS CONSTITUTIONAL: Denies fevers, chills, or night sweats. No unintentional weight loss reported. NEUROLOGICAL: Denies headache, amaurosis fugax, motor weakness, sensory deficit, vertigo/spinning sensation, gait abnormalities, or tremors. ENT: No hearing loss, otalgia, otorrhea, rhinitis, rhinorrhea, hoarseness, or sore throat. CARDIOVASCULAR: Denies any exertional angina, dyspnea on exertion, orthopnea, paroxysmal nocturnal dyspnea, palpitations, life-threatening arrhythmias, claudication. PULMONARY: Denies any shortness of breath, cough, phlegm/sputum, hemoptysis, pleuritic chest pain. SLEEP: Denies morning headaches, daytime somnolence or napping. Denies difficulty falling asleep, staying asleep, waking from sleep. Denies knowledge of snoring. GASTROINTESTINAL: Denies any type of dysphagia to either liquids or solids. Denies nausea, vomiting, pyrosis, early satiety, abdominal pain, diarrhea, constipation, or changes in stool consistency or caliber. Denies coffee-ground emesis, hematemesis, hematochezia, or melanotic stools. GENITOURINARY: Denies frequency, urgency, nocturia, hematuria or incontinence (Storage/Irritative symptoms.) Low urinary stream, straining to void, urinary intermittency or hesitancy, splitting of the voiding stream, terminal dribbling. ENDOCRINOLOGIC: Denies polyuria, polydipsia, polyphagia or heat/cold intolerances. HEMATOLOGIC: Denies thrombophilia/previous clots, or coagulopathy/bleeding disorders. ONCOLOGIC: Denies personal history of malignancy. DERMATOLOGIC: Denies rashes or pruritus. PSYCHIATRIC: Denies any suicidal or homicidal ideation. Denies hallucinations. PHYSICAL EXAM GENERAL APPEARANCE: The patient is awake, alert, and oriented, in no acute cardiopulmonary distress. NEUROLOGICAL: Cranial nerves II-XII grossly intact. Motor is 5/5 in bilateral upper and lower extremities proximal to distal. No sensory deficits. HEENT: Face is symmetric. Pupils are equal and reactive. Extraocular movements are intact. NECK: Supple. No JVD. No thyromegaly. No submental, submandibular, pre- /postauricular, occipital or supraclavicular lymphadenopathy. CHEST: Normal chest expansion. No Telemetry. LUNGS: Absence of any rales, rhonchi or any wheezing. CARDIOVASCULAR: Regular. S1 and S2 normal. No appreciable rubs, murmurs or gallops. ABDOMEN: Soft, nontender, and nondistended. There is no rebound, voluntary guarding, or rigidity. : Deferred. No Nunez. EXTREMITIES: Non-edematous and not cyanotic. No clubbing. Good capillary refill. SKIN: No skin breakdown. Vital Signs (last 8hr) Date Time Temp Pulse Resp B/P (MAP) Pulse Ox O2 Delivery O2 Flow Rate FiO2 09/06/24 08:00 98.8 95 15 115/80 94 Nasal Cannula 1.0 09/06/24 03:34 99.0 98 19 127/81 96 Nasal Cannula 2.0 24 LABS: Laboratory: Test 09/06/24 05:33 09/06/24 05:07 09/05/24 16:53 09/05/24 10:11 Range/Units Whole Blood Glucose 230 H 70-110 MG/DL White Blood Count 7.7 4.8-10.8 K/uL Red Blood Count 3.81 L 4.00-5.50 MIL/uL Hemoglobin 11.5 L 12.0-16.0 g/dL Hematocrit 34.9 L 36-48 % Mean Corpuscular Volume 91.6 79-99 fL Mean Corpuscular Hemoglobin 30.2 27.0-33.0 pg Mean Corpuscular Hemoglobin Concent 33.0 32.0-36.0 g/dL Red Cell Distribution Width 12.3 11.0-15.5 % Platelet Count 236 130-400 K/uL Mean Platelet Volume 9.5 7.5-10.5 fL Immature Granulocyte % (Auto) 0.8 0-1 % Neutrophils (%) (Auto) 69.5 40.0-77.0 % Lymphocytes (%) (Auto) 15.0 L 21.0-51.0 % Monocytes (%) (Auto) 12.7 3.0-13.0 % Eosinophils (%) (Auto) 1.6 0.0-8.0 % Basophils (%) (Auto) 0.4 0.0-5.0 % Neutrophils # (Auto) 5.4 1.8-7.7 K/uL Lymphocytes # (Auto) 1.2 1.0-4.8 K/uL Monocytes # (Auto) 1.0 0.1-1.0 K/uL Eosinophils # (Auto) 0.12 0.00-0.70 K/uL Basophils # (Auto) 0.03 0.00-0.20 K/uL Absolute Immature Granulocyte (auto 0.06 0-1 K/uL Nucleated Red Blood Cells 0.0 0.0-0.19 % Sodium Level 135 L 136-145 mmol/L Potassium Level 3.7 3.5-5.1 mmol/L Chloride Level 101 101-111 mmol/L Carbon Dioxide Level 27 21-32 mmol/L Blood Urea Nitrogen 5 L 7-18 mg/dL Creatinine 0.6 0.5-1.0 mg/dL Glomerular Filtration Rate Calc 111 >90 mL/min Random Glucose 239 H 70-105 mg/dL Total Calcium 8.4 L 8.5-10.1 mg/dL Total Bilirubin 0.6 0.2-1.0 mg/dL Aspartate Amino Transf (AST/SGOT) 11 10-37 U/L Alanine Aminotransferase (ALT/SGPT) 14 12-78 U/L Alkaline Phosphatase 108 50-136 U/L Total Protein 6.2 6.0-8.3 g/dL Albumin 2.3 L 3.5-5.0 g/dL Bedside Glucose Comment Notified Nurse Troponin I High Sensitivity < 4 L 4-50 ng/L Test 09/05/24 03:26 09/04/24 15:12 09/04/24 14:45 Range/Units Hemoglobin A1c 11.8 H 4.0-6.0 % Estimated Average Glucose (eAG) 292 H 70-126 mg/dL Phosphorus Level 3.5 2.5-4.9 mg/dL Magnesium Level 1.90 1.80-2.40 mg/dL Prothrombin Time 9.7 9.6-11.6 SEC Prothromb Time International Ratio <= 0.93 0.85-1.15 Activated Partial Thromboplast Time 24.6 L 26.3-35.5 SEC Total Creatine Kinase 30 21-232 U/L B-Type Natriuretic Peptide 32 0-100 pg/mL Lipase 50 16-77 U/L Urine Color LIGHT-YELLOW YELLOW Urine Appearance CLEAR CLEAR Urine pH 6.5 5.0-8.0 Urine Specific Jackson 1.030 1.001-1.031 Urine Protein NEGATIVE NEGATIVE mg/dL Urine Glucose (UA) >=1000 H NEGATIVE mg/dL Urine Ketones 10 H NEGATIVE mg/dL Urine Occult Blood NEGATIVE NEGATIVE Urine Nitrate NEGATIVE NEGATIVE Urine Bilirubin NEGATIVE NEGATIVE mg/dL Urine Urobilinogen 0.2 0.2-1.0 mg/dL Urine Leukocyte Esterase NEGATIVE NEGATIVE Alex/uL Urine RBC 0-1 0-1 /HPF Urine WBC 2-5 H 0-1 /HPF Urine Squamous Epithelial Cells FEW 0-2 /HPF Urine Bacteria None None Seen /HPF Urine Opiates Screen NEGATIVE NEGATIVE Urine Barbiturates Screen NEGATIVE NEGATIVE Urine Phencyclidine Screen NEGATIVE NEGATIVE Urine Amphetamines Screen NEGATIVE NEGATIVE Urine Benzodiazepines Screen NEGATIVE NEGATIVE Urine Cocaine Screen POSITIVE H NEGATIVE Urine Marijuana (THC) Screen NEGATIVE NEGATIVE Current Medications Medications (Trade) Dose Ordered Sig/Sami Route PRN Reason Start Time Stop Time Status Last Admin Dose Admin Acetaminophen (TYLenol 325MG TAB) 650 mg Q6H PRN PO TEMPERATURE GREATER THAN 101.5 09/04/24 18:30 10/04/24 18:29 09/06/24 06:40 650 MG Aspirin (Aspirin 81mg Ec Tab) 81 mg DAILY PO 09/05/24 09:00 10/05/24 08:59 09/06/24 08:47 81 MG Enoxaparin Sodium (Lovenox) 40 mg DAILY SQ 09/05/24 09:00 10/05/24 08:59 09/06/24 08:47 40 MG Famotidine (Pepcid 20mg Tab) 20 mg DAILY PO 09/05/24 09:00 10/05/24 08:59 09/06/24 08:47 20 MG Hydralazine HCl (APRESOLine 20MG INJ) 10 mg Q6H PRN IV For:SBP above 160;DBP above 90 09/04/24 18:30 10/04/24 18:29 Insulin Human Regular (humuLIN R 100 UNIT/ML 3ML) INSULIN SLIDING SCAL... ACHS SQ 09/04/24 21:00 10/04/24 20:59 09/06/24 06:34 4 UNIT Magnesium Sulfate 50 ml @ 0 mls/hr PROTOCOL PRN IV h 09/04/24 18:30 10/04/24 18:29 09/04/24 21:22 25 MLS/HR Morphine Sulfate (morPHINE 4MG SYG) 4 mg Q4H PRN IV SEVERE PAIN (7-10) 09/04/24 18:30 09/11/24 18:29 09/06/24 02:47 4 MG Nitroglycerin (Nitroglycerin 1gm Oint) 0.5 inch Q8H TD 09/04/24 18:30 10/04/24 18:29 09/06/24 02:38 0.5 INCH Nitroglycerin (Nitrostat) 0.4 mg AD PRN SL CHEST PAIN 09/04/24 17:30 10/04/24 17:29 09/04/24 17:28 0.4 MG Ondansetron HCl (zoFRAN 4MG INJ) 4 mg Q6H PRN IV NAUSEA/VOMITING 09/04/24 18:30 10/04/24 18:29 09/05/24 14:23 4 MG DIAGNOSTICS / RADIOLOGY: [place] [address] [address] IMAGING REPORT Signed PATIENT: SERA LOPEZ MR#: [id number] : 1975 SEX: F AGE: 49 LOCATION: [facility] ORDER 1438 STATUS: REG ER REPORT#: [id number] SERVICE 1437 REASON: CP ORDERING PHYSICIAN: VICTORIANO HANKS MD PROCEDURE: CXR1VW - CHEST 1VW INDICATION: CP TECHNIQUE: CHEST 1VW COMPARISON: None FINDINGS/IMPRESSION: No acute consolidation or pleural effusion. Cardiac silhouette is within normal limits. Mild degenerative changes of the spine. The visualized upper abdomen appears unremarkable. DICTATED BY: JAVY ALEXIS MD DATE: 09/04/241512 ELECTRONICALLY SIGNED BY: JAVY ALEXIS MD DATE: 09/04/24 1514 [place] [address] [id number] IMAGING REPORT Signed PATIENT: SERA LOPEZ MR#: [id number] : 1975 SEX: F AGE: 49 [facility] STATUS: ADM IN REPORT#: [id number] SERVICE 1254 REASON: rule out aortic dissection ORDERING PHYSICIAN: KUMAR OLIVEROS PROCEDURE: [id number] - CT ANGIO ABDOMEN PELVIS CT ANGIO ABDOMEN PELVIS HISTORY: Aortic dissection COMPARISON: None TECHNIQUE: CT angiography of the abdomen and pelvis was obtained using angiographic technique with maximum intensity projection reconstruction images. Patient was given 75 cc of Omnipaque through intravenous route. Oral contrast was not given. FINDINGS: Tiny right pleural effusion is seen. Bilateral lower lung pulmonary infiltrates are seen with linear atelectasis. Degenerative changes of the thoracolumbar spine are present. The heart is not enlarged. Liver is enlarged with fatty changes measuring 21 cm. The liver, spleen, adrenal glands and pancreas are unremarkable. There is no evidence of hydronephrosis bilaterally. No evidence of renal stone is seen. Fecal material is seen in the colon. There are normal size retroperitoneal and mesenteric lymph nodes. No ascites is seen. Atherosclerotic changes are present. Small bilateral ovarian cysts versus follicles are seen. Minimal subcutaneous fat stranding is seen in the left lower abdominal wall. There is diffuse atherosclerotic disease. No evidence of abdominal aortic aneurysm or aortic dissection is seen. The celiac, superior mesenteric and bilateral renal arteries are grossly patent. The visualized portion of the iliac and femoral arterial systems are also grossly patent. Pelvic sidewalls are symmetric bilaterally. Bladder is well distended without wall thickening. IMPRESSION: 1. No evidence of abdominal aortic aneurysm or aortic dissection is seen. Unremarkable CT angiogram study. Tiny right pleural effusion is seen. Bilateral lower lung pulmonary infiltrates are seen with linear atelectasis. CT was performed with one or more following dose reduction techniques: automated exposure control, adjustment of the mA and kv according to patient's size, or use of a iterative reconstruction technique. DICTATED BY: JOANIE CAMPOVERDE MD DATE: 09/05/241810 ELECTRONICALLY SIGNED BY: JOANIE CAMPOVERDE MD DATE: 09/05/241815 ASSESSMENT: Chest pain ruled out ACS, POA substance abuse - cocaine, POA uncontrolled diabetes mellitus type II, A1c 11.8, POA Hypomagnesemia, POA possible costochondritis PLAN: Patient admitted to [facility] Chest pain, substance abuse - cocaine Follow hemodynamics Vital signs per facility protocol ASA 81 mg PO QD Supplemental oxygen to maintain O2 saturation greater than 92% Trend troponins x 3 q6h Nitroglycerin paste 0.5 to anterior chest wall every 8 hours Consider Cardiology consult if troponin up trending and continued chest pain Diabetes mellitus type II Maintain blood glucose between 100-180 at all times Insulin sliding scale for blood glucose management Hypoglycemia and hyperglycemia protocol in place 1800 ADA diet Prophylaxis: Continue GI prophylaxis - famotidine 20 mg PO QD DVT Prophylaxis - Lovenox 40 mg subcutaneously once daily Electrolyte replacements per protocol Consult patient on illicit drug use ATTESTATION BY PHYSICIAN I have seen and examined the patient. I reviewed the documentation, medical decision making, and treatment plan as noted by the resident provider above. I agree with the findings and plan of care. Myrtle Torre MD, PRIYA N Sep 06, 2024 08:54
--- NOTE | 2024-09-06 10:01 | NUR ---
PAIN Patient complaining of pain in chest area, radiating under right breast. Administered morphine for primary nurse Sarah BOOKER, per unit policy. Patient bp 115/80.
[2024-09-06] MEDS: ketOROlac 10 MG TABLET PO PRN (16:09)
[2024-09-06] MEDS: LACTULOSE 20 GM/30 ML UDCUP PO PRN (20:54)
[2024-09-07 04:09] VITALS: BP 132/80; PULSE 81; RESP 18; TEMP 98.4
[2024-09-07 05:05] LABS: BASOPHILS # (AUTO) 0.03 K/uL (0.00-0.20); BASOPHILS % (AUTO) 0.5 % (0.0-5.0); EOSINOPHILS # (AUTO) 0.13 K/uL (0.00-0.70); EOSINOPHILS % (AUTO) 2.3 % (0.0-8.0); HEMATOCRIT 34.1 % (36-48); IMMATURE GRANULOCYTE ABSOLUTE 0.04 K/uL (0-1); LYMPHOCYTES # (AUTO) 1.1 K/uL (1.0-4.8); LYMPHOCYTES % (AUTO) 20.1 % (21.0-51.0); MEAN CORPUSCULAR HEMOGLOBIN 29.7 pg (27.0-33.0); MEAN CORPUSCULAR HGB CONC 32.8 g/dL (32.0-36.0); MEAN CORPUSCULAR VOLUME 90.5 fL (79-99); MONOCYTES # (AUTO) 0.7 K/uL (0.1-1.0); NEUTROPHILS # (AUTO) 3.7 K/uL (1.8-7.7); NEUTROPHILS % (AUTO) 64.4 % (40.0-77.0); PLATELET COUNT (AUTO) 263 K/uL (130-400); RED BLOOD CELL COUNT(AUTO) 3.77 MIL/uL (4.00-5.50); RED CELL DISTRIBUTION WIDTH 12.1 % (11.0-15.5); WHITE BLOOD COUNT (AUTO) 5.7 K/uL (4.8-10.8)
[2024-09-07 05:36] LABS: ALBUMIN 2.1 g/dL (3.5-5.0); BILIRUBIN,TOTAL 0.4 mg/dL (0.2-1.0); CREATININE 0.6 mg/dL (0.5-1.0); POTASSIUM 3.4 mmol/L (3.5-5.1)
[2024-09-07 08:00] VITALS: BP 104/59; PULSE 64; RESP 18; TEMP 98.1
[2024-09-07 08:30] VITALS: BP 130/88; PULSE 88; RESP 18; TEMP 98.2
[2024-09-07 09:32] VITALS: O2SAT 95
[2024-09-07 12:31] VITALS: BP_SYST 117; BP_SYST 131; BP_DIAS 61; BP_DIAS 92; PULSE 68; PULSE 88; RESP 17; RESP 18; TEMP 98.1; TEMP 98.7
--- NOTE | 2024-09-07 15:37 | NUR ---
DISCHARGE PT PIV DC'D PT VERBALIZED UNDERSTANDING OF DISCHARGE INSTRUCTIONS PT GATHERED AND TOOK ALL BELONGINGS PT HAD NO FURTHER QUESTIONS AT TIME OF DISCHARGE.
[2024-09-07] MEDS ORDERED: KETO10TA2 PO (16:07)
--- NOTE | 2024-09-07 16:18 | DS ---
Discharge Summary Hospital Course Summary: Patient is a 49-year-old female who presented to the ED for complaints of chest pain with an onset of3 weeks ago. Patient also tested positive for cocaine. Patient had a glucose of 363. An EKG showed sinus rhythm, troponins were negative, patient was given aspirin and supplemental oxygen. A chest x-ray s hows no acute consolidation of pleural effusion, cardiac silhouette was within normal limits, there was mild degenerative changes to the spine. A CT scan was ordered to rule out aortic the CT angiogram study was unremarkable. Patient's labs were within normal limits her hemoglobin and hematocrit were stable. Patient's electrolytes were within normal limits. Patient was switched from IV morphine to oral Toradol for chest wall pain most likely due to costochondritis. Today patient was seen at bedside she was afebrile with a heart rate of 88 and saturating well on room air with a blood pressure of 130/88. Patient labs are unremarkable. Patient understands chest wall pain most likely due to costochondritis we will take weeks to resolve. Patient is medically cleared and hemodynamically stable and will be discharged home today with adequate pain control. Patient has been advised to follow up with her PCP in 3-5 days for further management of her diabetes. Patient has also been advised to seek counseling for her substance abuse. Procedure(s): [place] [address] [address] IMAGING REPORT Signed PATIENT: SERA LOPEZ MR#: [id number] : 1975 SEX: F AGE: 49 LOCATION: [facility] ORDER 1438 STATUS: REG ER REPORT#: [id number] SERVICE 1437 REASON: CP ORDERING PHYSICIAN: VICTORIANO HANKS MD PROCEDURE: CXR1VW - CHEST 1VW INDICATION: CP TECHNIQUE: CHEST 1VW COMPARISON: None FINDINGS/IMPRESSION: No acute consolidation or pleural effusion. Cardiac silhouette is within normal limits. Mild degenerative changes of the spine. The visualized upper abdomen appears unremarkable. DICTATED BY: JAVY ALEXIS MD DATE: 09/04/241512 ELECTRONICALLY SIGNED BY: JAVY ALEXIS MD DATE: 09/04/241517 [facility] [address] [place] [address] IMAGING REPORT Signed PATIENT: SERA LOPEZ MR#: [id number] : 1975 SEX: F AGE: 49 LOCATION: [facility] ORDER 1305 STATUS: ADM IN REPORT#: [id number] SERVICE 1255 REASON: rule out aortic dissection ORDERING PHYSICIAN: KUMAR OLIVEROS PROCEDURE: CTAABPLWWO - CT ANGIO ABDOMEN PELVIS CT ANGIO ABDOMEN PELVIS HISTORY: Aortic dissection COMPARISON: None TECHNIQUE: CT angiography of the abdomen and pelvis was obtained using angiographic technique with maximum intensity projection reconstruction images. Patient was given 75 cc of Omnipaque through intravenous route. Oral contrast was not given. FINDINGS: Tiny right pleural effusion is seen. Bilateral lower lung pulmonary infiltrates are seen with linear atelectasis. Degenerative changes of the thoracolumbar spine are present. The heart is not enlarged. Liver is enlarged with fatty changes measuring 21 cm. The liver, spleen, adrenal glands and pancreas are unremarkable. There is no evidence of hydronephrosis bilaterally. No evidence of renal stone is seen. Fecal material is seen in the colon. There are normal size retroperitoneal and mesenteric lymph nodes. No ascites is seen. Atherosclerotic changes are present. Small bilateral ovarian cysts versus follicles are seen. Minimal subcutaneous fat stranding is seen in the left lower abdominal wall. There is diffuse atherosclerotic disease. No evidence of abdominal aortic aneurysm or aortic dissection is seen. The celiac, superior mesenteric and bilateral renal arteries are grossly patent. The visualized portion of the iliac and femoral arterial systems are also grossly patent. Pelvic sidewalls are symmetric bilaterally. Bladder is well distended without wall thickening. IMPRESSION: 1. No evidence of abdominal aortic aneurysm or aortic dissection is seen. Unremarkable CT angiogram study. Tiny right pleural effusion is seen. Bilateral lower lung pulmonary infiltrates are seen with linear atelectasis. CT was performed with one or more following dose reduction techniques: automated exposure control, adjustment of the mA and kv according to patient's size, or use of a iterative reconstruction technique. DICTATED BY: JOANIE CAMPOVERDE MD DATE: 09/05/241810 ELECTRONICALLY SIGNED BY: JOANIE CAMPOVERDE MD DATE: 09/05/241815 Assessment/Plan: ASSESSMENT: Chest pain ruled out ACS, POA substance abuse - cocaine, POA uncontrolled diabetes mellitus type II, A1c 11.8, POA Hypomagnesemia, POA possible costochondritis Discharge Instructions: Follow up with PCP in 3-5 days. Advised to not use illicit drugs. And seek counseling. Home Medications: Active Scripts Insulin Glargine,Hum.rec.anlog (Lantus Solostar) 100 Unit/Ml (3 Ml) Insuln.pen, 10 UNIT SQ HS for DM2 for 30 Days, #5 ML 0 Refills Prov:KUMAR OLIVEROS 09/07/24 Ketorolac Tromethamine (Ketorolac Tromethamine) 10 Mg Tablet, 1 TAB PO Q6HPRN PRN for pain for 5 Days, #20 TAB 0 Refills Prov:KUMAR OLIVEROS 09/07/24 New Medications: Insulin Glargine,Hum.rec.anlog (Lantus Solostar) 100 Unit/Ml (3 Ml) Insuln.pen 10 UNIT SQ HS for DM2 for 30 Days, #5 ML 0 Refills Ketorolac Tromethamine (Ketorolac Tromethamine) 10 Mg Tablet 1 TAB PO Q6HPRN PRN for pain for 5 Days, #20 TAB 0 Refills Time spent arranging discharge: 1-30 minutes ATTESTATION BY PHYSICIAN I have seen and examined the patient. I reviewed the documentation, medical decision making, and treatment plan as noted by the resident provider above. I agree with the findings and plan of care. Vahid Torre MD, PRIYA N Sep 07, 2024 16:18
[2024-09-07] MEDS ORDERED: INSU3INS3 SQ (16:20)
== END 2024-09-07 15:55 | disposition home or self-care (01) | DRG 313 ==
LOC: EDH 14:13 → EDHIP 14:14 → UNDOADMIN 18:28 → EDHIP 09-05 19:53 → 3CH 09-05 20:28
PROVIDERS: ADMIT Hospitalist; ATTEND Hospitalist
DX: R07.89 Other chest pain (principal); M94.0 Chondrocostal junction syndrome [Tietze]; I10 Essential (primary) hypertension; E83.42 Hypomagnesemia; E11.9 Type 2 diabetes mellitus without complications; F14.10 Cocaine abuse, uncomplicated; E78.5 Hyperlipidemia, unspecified; F19.10 Other psychoactive substance abuse, uncomplicated; Z51.5 Encounter for palliative care; Z79.82 Long term (current) use of aspirin
CPT/HCPCS: 36415; 71045; 74174; 80048; 80053; 80305; 81001; 82550; 82948; 83036; 83690; 83735; 83880; 84100; 84484; 85025; 85610; 85730; 93005; 96375; 99285; G0378; J1650; J1815; J2270; J2405; J2470; J3360; J3475; Q9967

== ENCOUNTER 2025-06-08 16:44 | Emergency (ER) | payer BC ==
[~2025-06-08] VITALS: Ht 149.9 cm; Wt 81.2 kg
[~2025-06-08 16:44] MED LIST: INSU3INS3 SQ; KETO10TA2 PO
[2025-06-08 16:47] VITALS: TEMP 98
[2025-06-08 17:14] LABS: APPEARANCE,URINE CLEAR (CLEAR); GLUCOSE, URINE (UA) NEGATIVE (NEGATIVE); LEUKOCYTE ESTERASE ,URINE 25 Leu/uL (NEGATIVE); NITRATE,URINE NEGATIVE (NEGATIVE); OCCULT BLOOD,URINE NEGATIVE (NEGATIVE)
[2025-06-08 17:16] LABS: SQUAMOUS EPITHELIAL CELL,UR FEW /HPF (0-2)
[2025-06-08 17:17] LABS: HCG,QUALITATIVE URINE NEGATIVE (NEGATIVE)
[2025-06-08 17:27] LABS: IMMATURE GRANULOCYTE ABSOLUTE 0.03 K/uL (0-1); NUCLEATED RED BLOOD CELLS 0.0 % (0.0-0.19); PLATELET COUNT (AUTO) 333 K/uL (130-400); RED BLOOD CELL COUNT(AUTO) 5.01 MIL/uL (4.00-5.50); RED CELL DISTRIBUTION WIDTH 14.1 % (11.0-15.5); WHITE BLOOD COUNT (AUTO) 5.0 K/uL (4.8-10.8)
[2025-06-08 17:40] LABS: CREATININE 0.6 mg/dL (0.5-1.0); GLOMERULAR FILTR. RATE CALC 110.0 mL/min (>90); GLUCOSE,RANDOM 123.0 mg/dL (70-105); SODIUM SERUM 136.0 mmol/L (136-145); UREA NITROGEN, BLOOD 17.0 mg/dL (7-18)
[2025-06-08] MEDS ORDERED: MAGNESIUM CITRATE 296 ML SOLUTION PO SCH (18:00)
[2025-06-08] MEDS ORDERED: LACTULOSE 20 GM/30 ML UDCUP PO SCH (18:00)
--- NOTE | 2025-06-08 18:19 | ERN ---
General Chief Complaint: Constipation Stated Complaint: CONSTIPATION/ HEADACHE Time Seen by MD: 16:48 Source: patient History of Present Illness Initial Comments PATIENT IS A 50-YEAR-OLD FEMALE COMING IN COMPLAINING OF CONSTIPATION. PER PATIENT SHE HAS BEEN IN THREE WEEKS. SHE STATES THAT SHE WAS EVALUATED BY PCP SENT OVER FOR FURTHER EVALUATION HERE. Allergies: Coded Allergies: No Known Drug Allergies (Unverified Allergy, Unknown, 09/04/24) Home Meds Active Scripts Insulin Glargine,Hum.rec.anlog (Lantus Solostar) 100 Unit/Ml (3 Ml) Insuln.pen, 10 UNIT SQ HS for DM2 for 30 Days, #5 ML 0 Refills Prov:KUMAR OLIVEROS N 09/07/24 Ketorolac Tromethamine (Ketorolac Tromethamine) 10 Mg Tablet, 1 TAB PO Q6HPRN PRN for pain for 5 Days, #20 TAB 0 Refills Prov:KUMAR OLIVEROS N 09/07/24 Past Medical History Past Medical History: Constipation, Diabetes-Type II, Hypertension Past Surgical History: BTL, ROS Dictation CONSTITUTIONAL: NO CHILLS, NO FEVER, NO WEAKNESS, NO DIAPHORESIS, NO MALAISE. HEAD/FACE: NO SIGNS OF TRAUMA. EENT: NO EYE PAIN, NO BLURRED VISION, NO TEARING, NO DOUBLE VISION, NO EAR PAIN, NO EAR DISCHARGE, NO NOSE PAIN, NO NASAL CONGESTION, NO THROAT PAIN, NO THROAT SWELLING, NO MOUTH PAIN. RESPIRATORY: NO COUGH, NO ORTHOPNEA, NO SOB, NO STRIDOR, NO WHEEZING. CARDIOVASCULAR: NO CHEST PAIN, NO EDEMA, NO PALPITATIONS, NO SYNCOPE. GASTROINTESTINAL/ABDOMINAL: NO ABDOMINAL PAIN, CONSTIPATION, NO DIARRHEA, NO NAUSEA, NO VOMITING. GENITOURINARY: NO ABNORMAL DISCHARGE, NO DYSURIA, NO FREQUENT URINATION, NO HEMATURIA. NO COMPLAINTS OF PAIN IN THE GENITALS. MUSCULOSKELETAL: NO BACK PAIN, NO GOUT, NO JOINT PAIN, NO JOINT SWELLING, NO MUSCLE PAIN, NO MUSCLE STIFFNESS, NO NECK PAIN. INTEGUMENTARY: NO CHANGE IN COLOR, NO CHANGE IN HAIR/NAILS, NO DRYNESS, NO LESION, NO LUMPS, NO RASH. NEUROLOGICAL/PSYCH: NO ANXIETY, NOT DEPRESSED, NO EMOTIONAL PROBLEM, NO HEADACHE, NO NUMBNESS, NO PRE-EXISTING DEFICIT, NO HISTORY OF SEIZURES, NO TREMORS, NO WEAKNESS. HEMATOLOGIC/LYMPHATIC: NOT ANEMIC, NO HISTORY OF BLOOD CLOTS, NO APPARENT BLEEDING, NO BRUISING, GLANDS NOT SWOLLEN. ALL SYSTEMS NEGATIVE, EXCEPT NOTED. Physical Exam Physical Exam Dictation VITAL SIGNS: REVIEWED. GENERAL APPEARANCE: ALERT, ORIENTED X3, NO ACUTE DISTRESS, OBESE. HEAD AND FACE: NON-TRAUMATIC. EYES: PERRL, PINK CONJUNCTIVAS, EYELID NO TRAUMA, ANTERIOR CHAMBER CLEAR. EARS: PINNAS INTACT AND NO SIGNS OF TRAUMA OR ERYTHEMA. EAR CANALS CLEAR AND NO DISCHARGE. TMS NO ERYTHEMA. NOSE: NO DISCHARGE, NO BLEEDING. OROPHARYNX: MOUTH NORMAL, TEETH NO CARIES, TONGUE PINK. PHARYNX CLEAR, NO ERYTHEMA. TONSILS NO EXUDATES, NO ABSCESSES NOTED. MUCOUS MEMBRANE MOIST. NECK: SUPPLE, NON-TENDER, NO THYROMEGALY, NO MASSES, NO JVD, NO BRUITS. BREAST: DEFERRED. CHEST: NO TENDERNESS, NO CREPITUS, NO PARADOXICAL MOVEMENT, NO RETRACTIONS. LUNGS: CLEAR, WELL-VENTILATED, SYMMETRIC, NO RALES, NO WHEEZING, NO RHONCHI, NO STRIDOR, GOOD BREATH SOUNDS BILATERALLY. HEART: REGULAR RATE, REGULAR RHYTHM, NO MURMUR, NO GALLOPS. VASCULAR: NO PERIPHERAL EDEMA. ABDOMEN: SOFT, POSITIVE BOWEL SOUNDS, DISTENDED, NO GUARDING, NONTENDER, NO REBOUND, NO MASSES NO HEPATOMEGALY, NO SPLENOMEGALY, NO TIPTON'S SIGN, NO HERNIAS. RECTAL: DEFERRED. GENITAL: DEFERRED. NEUROLOGICAL: NORMAL SPEECH, GROSS MOTOR FUNCTION INTACT, GROSS SENSORY FUNCTION INTACT. MUSCULOSKELETAL: NECK NONTENDER, FULL RANGE OF MOTION, BACK NONTENDER, FULL RANGE OF MOTION. EXTREMITIES: NONTENDER, FULL RANGE OF MOTION. SKIN: COLOR PINK, DRY, NO TURGOR, NO RASH, NO LACERATIONS, NO ABRASIONS, NO CONTUSIONS. LYMPHATICS: DEFERRED. Results Laboratory and Microbiology Lab and Micro Result Laboratory Tests Test 06/08/25 14:58 06/08/25 17:21 Urine Color LIGHT-YELLOW (YELLOW) Urine Appearance CLEAR (CLEAR) Urine pH 5.5 (5.0-8.0) Urine Specific Delia 1.026 (1.001-1.031) Urine Protein NEGATIVE mg/dL (NEGATIVE) Urine Glucose (UA) NEGATIVE mg/dL (NEGATIVE) Urine Ketones NEGATIVE mg/dL (NEGATIVE) Urine Occult Blood NEGATIVE (NEGATIVE) Urine Nitrate NEGATIVE (NEGATIVE) Urine Bilirubin NEGATIVE mg/dL (NEGATIVE) Urine Urobilinogen 0.2 mg/dL (0.2-1.0) Urine Leukocyte Esterase 25 Alex/uL (NEGATIVE) H Urine RBC 2-5 /HPF (0-1) H Urine WBC 2-5 /HPF (0-1) H Urine Squamous Epithelial Cells FEW /HPF (0-2) Urine Bacteria RARE /HPF (None Seen) Urine HCG, Qualitative NEGATIVE (NEGATIVE) White Blood Count 5.0 K/uL (4.8-10.8) Red Blood Count 5.01 MIL/uL (4.00-5.50) Hemoglobin 13.8 g/dL (12.0-16.0) Hematocrit 42.5 % (36-48) Mean Corpuscular Volume 84.8 fL (79-99) Mean Corpuscular Hemoglobin 27.5 pg (27.0-33.0) Mean Corpuscular Hemoglobin Concent 32.5 g/dL (32.0-36.0) Red Cell Distribution Width 14.1 % (11.0-15.5) Platelet Count 333 K/uL (130-400) Mean Platelet Volume 9.7 fL (7.5-10.5) Immature Granulocyte % (Auto) 0.6 % (0-1) Neutrophils (%) (Auto) 42.6 % (40.0-77.0) Lymphocytes (%) (Auto) 42.7 % (21.0-51.0) Monocytes (%) (Auto) 10.3 % (3.0-13.0) Eosinophils (%) (Auto) 2.2 % (0.0-8.0) Basophils (%) (Auto) 1.6 % (0.0-5.0) Neutrophils # (Auto) 2.1 K/uL (1.8-7.7) Lymphocytes # (Auto) 2.1 K/uL (1.0-4.8) Monocytes # (Auto) 0.5 K/uL (0.1-1.0) Eosinophils # (Auto) 0.11 K/uL (0.00-0.70) Basophils # (Auto) 0.08 K/uL (0.00-0.20) Absolute Immature Granulocyte (auto 0.03 K/uL (0-1) Nucleated Red Blood Cells 0.0 % (0.0-0.19) Sodium Level 136 mmol/L (136-145) Potassium Level 4.4 mmol/L (3.5-5.1) Chloride Level 98 mmol/L (101-111) L Carbon Dioxide Level 30 mmol/L (21-32) Blood Urea Nitrogen 17 mg/dL (7-18) Creatinine 0.6 mg/dL (0.5-1.0) Glomerular Filtration Rate Calc 110 mL/min (>90) Random Glucose 123 mg/dL (70-105) H Total Calcium 9.3 mg/dL (8.5-10.1) Labs Reviewed?: Yes EKG/XRAY/US/CT/MRI X-RAY Comment KUB-DISTAL STOOL BURDEN MDM MDM: DIFFERENTIAL DIAGNOSIS: CONSTIPATION, RATIONALE: TESTS CONSIDERED AND ORDERED SECONDARY TO SHARED DECISION MAKING INCLUDE: PREVIOUS OUTSIDE RECORDS REVIEWED: OLD ER VISITS. RISK OF COMPLICATION AND/OR MORBIDITY OR MORTALITY OF PATIENT MANAGEMENT: NONE MEDICATIONS-PER MEDICATION RECONCILIATION NEED FOR HOSPITALIZATION: PATIENT DOES NOT MEET CRITERIA FOR HOSPITALIZATION. NEED FOR EMERGENCY MAJOR/MINOR SURGERY: NO PATIENT IS A 50-YEAR-OLD FEMALE COMING IN COMPLAINING OF ABDOMINAL PAIN. PER PATIENT HE HAS A SHE HAS NOT BEEN ABLE TO DEFECATE IN THREE WEEKS. PATIENT WAS EVALUATED BY PCP SENT OVER FOR FURTHER EVALUATION X-RAY DISCLOSE POSSIBLE DISTAL STOOL BURDEN. PATIENT RECEIVED LACTULOSE AND MAG CITRATE. PATIENT WILL BE D ISCHARGED IN STABLE CONDITION WITH A DIAGNOSIS OF CONSTIPATION FLEET ENEMAS WE WILL BE PROVIDED. ED Course Orders Procedure Category Date Status Time Cbc With Differential LAB 06/08/25 Complete 16:54 Basic Metabolic Panel LAB 06/08/25 Complete 16:54 Urinalysis LAB 06/08/25 Complete W/Microscopic 16:54 ,Urine Test LAB 06/08/25 Complete 16:54 Abd 1vw RAD 06/08/25 Taken 16:57 Magnesium Citrate PHA 06/08/25 In Process (Magnesium Citrate) 18:00 Lactulose 20 Gm/30 Ml PHA 06/08/25 In Process Udcup (Constulose 18:00 Current Medications Medications (Trade) Dose Ordered Sig/Sami Route PRN Reason Start Time Stop Time Status Last Admin Dose Admin Lactulose (Constulose 20gm/ 30ml Udcup) 20 gm ONCE PO 06/08/25 18:00 06/08/25 22:00 Magnesium Citrate (Magnesium Citrate) 296 ml ONCE PO 06/08/25 18:00 06/08/25 22:00 Vital Signs Date Time Temp Pulse Resp B/P (MAP) Pulse Ox O2 Delivery O2 Flow Rate FiO2 06/08/25 16:47 98.1 91 18 115/87 97 Room Air 0 DX & DISP Disposition: Discharge Departure Impression: Primary Impression: Constipation Condition: Stable Scripts Na Phos,M-B/Na Phos,Di-Ba (Fleet Enema) 19 Gram-7 Gram/118 Ml Enema 1 EACH [place] ONCE for 2 Days, #2 EACH 0 Refills Prov: VICTORIANO HANKS MD 06/08/25 Additional Instructions: FOLLOW-UP WITH PRIMARY CARE PROVIDER IN 1 TO 2 DAYS. TAKE MEDICATIONS DIRECTED HERE IN THE EMERGENCY ROOM. OKAY TO CONTINUE HOME MEDICATIONS UNLESS OTHERWISE DISCUSSED DURING YOUR VISIT IN THE EMERGENCY ROOM TODAY. RETURN TO YOUR NEAREST EMERGENCY ROOM IF SYMPTOMS WORSEN OR IF THERE IS NO IMPROVEMENT. CALL 911 IF YOU NEED IMMEDIATE ASSISTANCE. TAKE TYLENOL [id number]-[id number] NEEDED AND IF NO CONTRAINDICATIONS ARE PRESENT. INCREASE ORAL HYDRATION. A WOUND CULTURE OR URINE CULTURE WAS ORDERED HERE IN THE EMERGENCY ROOM DEPARTMENT PLEASE FOLLOW-UP WITH PRIMARY CARE PROVIDER AND ADVISE THEM TO GET REPORTS FROM OUR FACILITY. IF YOU HAD ANY LEIGHTON WRAP/SPLINTS THAT WERE APPLIED HERE, PLEASE DO NOT REMOVE THEM UNTIL YOU SEE YOUR PRIMARY CARE OR SPECIALTY. REFERRALS: Referrals: SELF,REFERRAL (PCP) LANETTE ALICEA MD Time of Disposition: 18:23 VICTORIANO HANKS MD Jun 08, 2025 18:19
[2025-06-08] MEDS ORDERED: NA P133E22 PR (18:24)
[2025-06-08 18:36] VITALS: BP 124/90; PULSE 90; RESP 17; O2SAT 98
--- NOTE | 2025-06-08 18:51 | HMCIMG ---
EXAM: CR Abdomen, 2 View. CLINICAL HISTORY: CONSTIPATION COMPARISON: None provided. FINDINGS: BOWEL: Nonspecific bowel gas pattern PERITONEUM/SOFT TISSUES: No free air evident. No pathologic appearing calcification. BONES: No aggressive appearing osseous lesion seen. MISCELLANEOUS: Moderate stool IMPRESSION: 1. Nonspecific bowel gas pattern 2. Moderate stool /[place]
== END 2025-06-08 18:54 | disposition home or self-care (01) ==
LOC: EDH 16:44
DX: K59.00 Constipation, unspecified (principal); E11.9 Type 2 diabetes mellitus without complications; I10 Essential (primary) hypertension; Z98.51 Tubal ligation status
CPT/HCPCS: 36415; 74018; 80048; 81001; 81025; 85025; 99283